=== PATIENT | female | born 1960 | race Caucasian/White ===

== ENCOUNTER → 2023-08-10 12:48 | Outpatient (REF) | payer OTHER, SELFPAY | LOC: HWRAD 12:48 | PROVIDERS: ATTENDING PHYSICIAN Family Medicine | DX: R31.9 Hematuria, unspecified (principal) | CPT/HCPCS: 76770 ==

== ENCOUNTER → 2023-08-26 10:47 | Outpatient (REF) | payer OTHER, SELFPAY | LOC: RAD 10:47 | PROVIDERS: ATTENDING PHYSICIAN Urology; FAMILY PHYSICIAN Family Medicine | DX: N13.30 Unspecified hydronephrosis (principal); R31.0 Gross hematuria | CPT/HCPCS: 74178; Q9967 ==

== ENCOUNTER 2023-08-26 12:03 | Emergency (ER) | payer OTHER, SELFPAY ==
[2023-08-26 12:07] VITALS: BP 160/96
--- NOTE | 2023-08-26 13:03 | ED.GENMED ---
History of Present Illness
General
Chief Complaint: Allergic Reaction
Time Seen by Provider: 08/26/23 12:38
Travel History
Have you had any contact with someone who has COVID-19?: No
Do you have any symptoms of coronavirus? Fever > 100 degrees, chills, cough, shortness of breath, sore throat, loss of taste or smell, muscle aches, or headache?: No
History of Present Illness
History of Present Illness:
63-year-old female without significant past medical history presenting to the emergency department for concern of allergic reaction. Patient reports about an hour prior and a half prior to arrival she had IV contrast for an outpatient CT scan.
After this study was done, she started to feel flushing to her face with swelling to her upper eyelids. She also had some itching and flushing to her palms. Denies any associated respiratory symptoms. Denies any GI symptoms. Denies any feeling
of throat closure. Reports that her symptoms have improved since initial symptom onset. Denies ever having IV contrast in the past. Denies any present chest pain, difficulty breathing, rash, visual changes, feeling of throat closure, nausea,
vomiting, or additional acute medical complaints.
Phy Exam
Physical Exam
Physical Exam:
GENERAL: Alert , in no apparent distress
EYE: pupils equal and reactive. Mild swelling to the upper eyelids without erythema
NECK: Supple, no significant adenopathy.
ENT: mmm. No oropharyngeal swelling
CARDIAC: Regular rate and rhythm .
LUNGS: Clear breath sounds bilaterally, no acute respiratory distress, no wheezes/rales/rhonchi
ABDOMEN: No distention
NEUROLOGICAL: Alert and oriented, no focal neuro deficits
SKIN: Warm and dry, skin intact. No systemic rash
MUSCULOSKELETAL: No edema, well perfused.
PSYCH: Normal and appropriate interaction.
Course
Vital Signs
Initial and Last Documented VS:
Initial Vital Signs
Temp Pulse Resp BP Pulse Ox
99.6 F 81 18 160/96 98
08/26/23 12:07 08/26/23 12:07 08/26/23 12:07 08/26/23 12:07 08/26/23 12:07
Last Documented Vital Signs
Temp Pulse Resp BP Pulse Ox
99.6 F 81 18 160/96 98
08/26/23 12:07 08/26/23 12:07 08/26/23 12:07 08/26/23 12:07 08/26/23 12:07
MDM/Problems Addressed
MDM/Problems Addressed:
63-year-old female presenting to the emergency department after presumed allergic reaction to IV contrast. Vital signs significant for mild hypertension, however patient slightly anxious.
On exam patient is very well-appearing, no acute distress or discomfort. Benign cardiac and pulmonary exam. No signs of systemic rash. No concern for anaphylaxis without any respiratory, GI, or systemic symptoms. Suspect mild allergic reaction
to the IV contrast. Patient is declining any medications at this time, such as Benadryl, Pepcid, steroids. She would like to continue supportive therapy at home. Feel that this is reasonable given improving symptoms, and injected contrast an hour
and a half prior to arrival. Feel stable for discharge. Explained that if she is to ever get imaging in the future, to make them aware of her allergy for potential reimaging prep. Return precautions discussed including any development of a rash,
increased swelling to the face, development of throat swelling or difficulty breathing, chest pain
*Critical Care Note
Total Time (30-74mins, 75-104mins- exclusive of procedures): Not Applicable
ED Attending Note
-
Portions of this chart may have been created with voice recognition software.� Occasional wrong word or��sound alike� substitutions may have occurred due to the inherent limitations of voice recognition software.
Discharge Plan
Departure
Referrals:
Guillermo Henderson MD [Family Provider] -
Interventions
Interventions:
*Risk Screen - Suicide Last Done: 08/26/23 12:10
*General Assessment Last Done: 08/26/23 12:10
*Neglect/Abuse Screening Last Done: 08/26/23 12:10
*ED COVID-19 Vaccine History Last Done: 08/26/23 12:16
ED- Cardiac Assessment Last Done: 08/26/23 12:16
ED- Pulmonary Assessment Last Done: 08/26/23 12:16
ED-Skin Assessment Last Done: 08/26/23 12:16
Discharge Date and Time
Print Language: BULGARIAN
== END 2023-08-26 13:14 | disposition home or self-care (01) ==
LOC: EMR 12:03
PROVIDERS: EMERGENCY PHYSICIAN Student in an Organized Health Care Education/Training Program; FAMILY PHYSICIAN Family Medicine
DX: R23.2 Flushing (principal); R22.0 Localized swelling, mass and lump, head; L29.9 Pruritus, unspecified; T50.8X5A Adverse effect of diagnostic agents, initial encounter; Z88.0 Allergy status to penicillin; Z88.3 Allergy status to other anti-infective agents; Z91.041 Radiographic dye allergy status
CPT/HCPCS: 99281

== ENCOUNTER 2023-08-26 21:54 | Inpatient (IN) | payer OTHER, SELFPAY ==
[2023-08-26 17:41] VITALS: BP 132/81
[2023-08-26 19:06] LABS: % Basophils 0.3 % (0-2); % Eosinophils 0.2 % (0-6); % Immature Granulocytes 0.7 % (0-0.5); % Monocytes 8.2 % (1.7-9.3); % Neutrophils 77.6 % (42.2-75.2); Absolute Immature Granulocytes 0.1 10^3/uL (0-0.05); Absolute Lymphocytes 1.7 10^3/uL (1.2-3.4); Absolute Neutrophils 9.9 10^3/uL (1.4-6.5); Hematocrit 31.9 % (37.0-47.0); Hemoglobin 10.8 g/dL (12.0-16.0); Mean Corp Hgb Conc. 33.9 g/dL (33.0-37.0); Mean Corpuscular Hgb 29.5 pg (27.0-31.0); Mean Corpuscular Volume 87.2 fL (81.0-99.0); Mean Platelet Volume 9.4 fL (7.4-10.4); Nucleated Red Blood Cells % 0 %; Platelet Count 224 10^3/uL (130-400); Red Blood Cell Count 3.66 10^6/uL (4.20-5.40); Red Cell Dist. Width 12.6 % (11.5-14.5); White Blood Cell Count 12.7 10^3/uL (4.8-10.8)
[2023-08-26 19:26] LABS: ALT (SGPT) 48 U/L (0-35); AST (SGOT) 52 U/L (14-36); Albumin 2.7 g/dl (3.5-5.0); Alkaline Phosphatase 91 U/L (38-126); Blood Urea Nitrogen 11 mg/dl (7-17); Calcium 8.8 mg/dl (8.4-10.2); Carbon Dioxide 25 mmol/L (22-30); Chloride 102 mmol/L (98-107); Glucose 97 mg/dl (70-99); Potassium 3.3 mmol/L (3.5-5.1); Sodium 132 mmol/L (135-145); Total Bilirubin 0.7 mg/dl (0.2-1.3); Total Protein 5.7 g/dl (6.3-8.2); eGFR > 60.00
[2023-08-26 19:34] LABS: Lipase 92 U/L (23-300)
--- NOTE | 2023-08-26 20:13 | ED.GENMED ---
History of Present Illness
General
Chief Complaint: Abnormal Lab Value
Source: patient
Exam Limitations: none
Time Seen by Provider: 08/26/23 19:20
Nursing documentation reviewed up to this point in time: agreed with
Travel History
Have you had any contact with someone who has COVID-19?: No
Do you have any symptoms of coronavirus? Fever > 100 degrees, chills, cough, shortness of breath, sore throat, loss of taste or smell, muscle aches, or headache?: No
History of Present Illness
History of Present Illness:
63 y/o F with h/o gerd
has had a few weeks/months of right lower bacak pain, atraumatic; no dysuria;
had US on 08/09 of kidneys and showed mild dilation of R renal pelvis; went to urology last week and dr. torrez ordered outpatient CT scan with IV contrast; pt's CT was done today outpatient; she had mild allergic reaction to contrast and was seen
here earlier then went home after symptoms resovled without meds
was called by dr. torrez with results of large periappendiceal abscess [id number]
she has had subjective fever/chills the past few days; nausea; lack fo appetite, weight loss;
her pain is mostl yin back 7/10 worse with movement
she feels chills
has had some vomiting the past few days occasionally
no constpation, diarrhea
Review of Systems
Review of Systems
Allergies reviewed?: Yes
All Other Systems: Not applicable
Phy Exam
Physical Exam
Physical Exam:
GENERAL: Alert , in no apparent distress, uncomfortable with movement of back
EYE: pupils equal and reactive
NECK: Supple
ENT: o/p clr, mmm.
CARDIAC: Regular rate and rhythm .
LUNGS: Clear breath sounds bilaterally, no acute respiratory distress, no wheezes/rales/rhonchi
ABDOMEN: Soft, moderate tenderness right flank, right lower quadrant, mild voluntary guarding, no rebound no cvat, normal bowel sounds
NEUROLOGICAL: Alert and oriented, no focal neuro deficits
SKIN: Warm and dry, skin intact.
back: right lower lumbar lateral tender
MUSCULOSKELETAL: No edema, well perfused. neg cecily's sign
PSYCH: Normal and appropriate interaction.
Course
Orders/Labs/Results
Orders:
Orders
08/26/23 Dinner
Clear Liquid
08/26/23 19:00
Complete Blood Count/With Diff Urgent
Comprehensive Metabolic Panel Urgent
Lipase Urgent
08/26/23 20:04
0.9% Sodium Chloride 1000 ml [Nss] 1,000 ml IV BOLUS
08/26/23 20:06
HYDROmorphone [Dilaudid] 0.5 mg IV NOW STA
08/26/23 20:15
MetroNIDAZOLE 500 MG/100 ML [Flagyl 500 mg] 100 ml IV NOW
08/26/23 20:35
Lactic Acid Urgent
Blood Culture Q30M
VIVIAN Source: Blood/Venous
Specimen Description:
Blood Culture Q30M
VIVIAN Source: Blood/Venous
Specimen Description:
08/26/23 20:55
0.9% Sodium Chloride [Nss (Preservative Free)] 8 ml IV NOW STA
Diphenhydramine [Benadryl] 25 mg IV NOW STA
Famotidine [Pepcid] 20 mg IV NOW STA
08/26/23 21:00
SURGICAL CONSULT Routine
Consulting Provider: Devin Trejo
Was physician already notified: Yes
Reason for consult: Periappendiceal abscess
08/26/23 21:01
Admit/Transfer Patient As Directed
Co-Sign Provider:
Level of Care: Inpatient admission
Assign to:: Medical/Surgical
Physician / Group: bruno cast
Diagnosis: Large periappendiceal abscess, allergic reaction IV contrast
Reason for Hospitalization: Large periappendiceal abscess, allergic reaction IV contrast
Expected length of stay greater than two midnights?: Yes
ELOS- Estimated Length of Stay in days: 3
I certify the patient meets the requirements for IP care: Yes
Code Status As Directed
Resuscitation Status: Full Code
Ciprofloxacin 400 mg/[id number] [Cipro 400 mg] 200 ml IV NOW
08/26/23 21:42
Potassium Chloride [KCl] 40 meq PO NOW STA
08/26/23 22:23
0.9% Sodium Chloride 1000 ml [Nss] 1,000 ml IV 100 mls/hr
Ciprofloxacin 400 mg/[id number] [Cipro 400 mg] 200 ml IV Q12H
Diphenhydramine [Benadryl] 25 mg IV Q4HPRN PRN
HYDROmorphone [Dilaudid] 0.25 mg IV Q4HPRN PRN
HYDROmorphone [Dilaudid] 0.5 mg IV Q4HPRN PRN
MetroNIDAZOLE 500 MG/100 ML [Flagyl 500 mg] 100 ml IV Q8H
Ondansetron Injectable [Zofran] 4 mg IV Q6HPRN PRN
08/26/23 22:23
Activity As Directed
Activity Level: As Tolerated
Pneumatic Compression Sleeves As Directed
Type: Knee high
Vital Signs As Directed
Frequency: Per unit guidelines
Ot Eval And Treat Routine
Pt Eval And Treat Routine
Activity Level: As Tolerated
DX Deep Vein Thrombosis Video Routine
08/27/23 06:00
Complete Blood Count/With Diff IN AM
Comprehensive Metabolic Panel IN AM
08/27/23 08:00
Famotidine [Pepcid] 20 mg IV Q12
Levothyroxine [Synthroid] 50 mcg PO DAILY
08/27/23 12:00
Tamsulosin [Flomax] 0.4 mg PO NOON
08/27/23 18:00
Pantoprazole [Protonix] 40 mg PO QPM
08/28/23 06:00
Complete Blood Count/With Diff IN AM
Comprehensive Metabolic Panel IN AM
08/29/23 06:00
Complete Blood Count/With Diff IN AM
Comprehensive Metabolic Panel IN AM
Abnormal Lab Results
08/26/23
19:00
WBC 12.7 H 10^3/uL
(4.8-10.8)
RBC 3.66 L 10^6/uL
(4.20-5.40)
Hgb 10.8 L g/dL
(12.0-16.0)
Hct 31.9 L %
(37.0-47.0)
Abs Immat Gran (auto) 0.1 H 10^3/uL
(0-0.05)
Absolute Neuts (auto) 9.9 H 10^3/uL
(1.4-6.5)
Absolute Monos (auto) 1.0 H 10^3/uL
(0.1-0.6)
Immature Gran % 0.7 H %
(0-0.5)
Neutrophils % 77.6 H %
(42.2-75.2)
Lymphocytes % 13.0 L %
(20.5-51.1)
Sodium 132 L mmol/L
(135-145)
Potassium 3.3 L mmol/L
(3.5-5.1)
Creatinine 0.5 L mg/dL
(0.6-1.0)
AST 52 H U/L
(14-36)
ALT 48 H U/L
(0-35)
Total Protein 5.7 L g/dl
(6.3-8.2)
Albumin 2.7 L g/dl
(3.5-5.0)
08/26/23 19:00
08/26/23 19:00
Vital Signs
Initial and Last Documented VS:
Initial Vital Signs
Temp Pulse Resp BP Pulse Ox
99.6 F 95 18 132/81 97
08/26/23 17:41 08/26/23 17:41 08/26/23 17:41 08/26/23 17:41 08/26/23 17:41
Last Documented Vital Signs
Temp Pulse Resp BP Pulse Ox
99.6 F 74 15 132/88 97
08/26/23 17:41 08/26/23 20:41 08/26/23 20:41 08/26/23 20:41 08/26/23 20:41
MDM/Problems Addressed
Differential Diagnosis Includes:
intraabdominal abscess, sepsis, bacteremia, mailgnancy
MDM/Problems Addressed:
63 y/o F with no real sig pmh
here with weeks of R lower back pain and some abd discomfort, nausea, weight loss, lack of appetite
w/u outpatient with renal US to start, no real concerns, maybe dialuation of renal collecting system
sent to urology who saw her and ordered CT with IV ocnrast
which unfortunately shows large R intraabdominal abscess periappendiceal
probably acute appe but malignancy less likely
pt is tender RLQ and back
low grad etemp
wbc 12
cultures pending
iv abx
d/w jose trejo who recommended IR consult iv abx
admit medicine
*Critical Care Note
Total Time (30-74mins, 75-104mins- exclusive of procedures): Not Applicable
ED Attending Note
-
Portions of this chart may have been created with voice recognition software.� Occasional wrong word or��sound alike� substitutions may have occurred due to the inherent limitations of voice recognition software.
Discharge Plan
Departure
Patient Disposition: Admit
Date of Disposition: 08/26/23
Time of Disposition: 20:12
Admit to: Med/Surg
Presentation/result/management discussed w/ accepting MD/DO: Hospitalist
Condition: Fair
Covid-19: Not Applicable
Discharge Problem:
Intra-abdominal abscess
Interventions
Interventions:
*Risk Screen - Suicide Last Done: 08/26/23 17:41
*General Assessment Last Done: 08/26/23 17:41
*Neglect/Abuse Screening Last Done: 08/26/23 17:45
ED- Fall Risk Assessment Last Done: 08/26/23 22:31
*Nursing Disposition Last Done: 08/26/23 22:31
Discharge Date and Time
Discharge Date/Time: 08/26/23 22:33
[2023-08-26] MEDS: DILAUDID 0.5 MG IV (20:34)
[2023-08-26] MEDS: FLAGYL 500 MG 100 IV (20:34)
[2023-08-26] MEDS: NSS 1000 IV ×2 (20:34→22:55)
--- NOTE | 2023-08-26 20:39 | HPS.HSE ---
Family Physician
-
Family Physician: Guillermo Henderson
Chief Complaint
-
Persistent back pain, vomiting, chills
History of Present Illness
63-year-old female complaining of right lower back pain over the past few weeks to months. She had outpatient ultrasound of her kidneys on 08/09 showing mild dilation of her right renal pelvis she had follow-up with Dr. Carter last week who ordered
an outpatient CT with contrast that was done today. She did have an allergic reaction to the contrast causing swelling of her upper eyelids, erythema lower orbits, erythema upper chest but is still present. She denies any tongue swelling, lip
swelling wheezing or shortness of breath . she was notified by Dr. Carter of a large periappendiceal abscess and was sent to ER for evaluation. She reports feeling back pain worse with movement, chills, vomiting over the past few days. She denies
headache, chest pain, palpitations, shortness breath, cough, diarrhea, constipation, urinary symptoms. She is past medical history of hypothyroidism, GERD
Medical History
Past Medical History
Past Medical History: Reports Other
Additional Past Medical History:
hypothyroidism, GERD
Past Surgical History: Reports Other
Additional Past Surgical History:
Fracture right shoulder repair
Hysterectomy 2002
Social History
Tobacco: Former Smoker (35-year 1 pack a day quit March 2023)
Alcohol: None
Drug: None
Living: With Family
Family History
Family History: Other (Mother age 66 renal cancer, father age 90 [address])
Allergies / Home Medications
Allergies reflects when Allergies were last updated in [facility].
Home Medications with original date entered in [facility]
Allergy/Medication List:
Allergies
Allergy/AdvReac Type Severity Reaction Status Date / Time
Iodinated Contrast Media Allergy Intermediate Hives Verified 08/26/23 17:41
Cephalosporins Allergy Unknown Verified 08/26/23 17:41
penicillin V Allergy Unknown Verified 08/26/23 17:41
Penicillins Allergy Unknown Verified 08/26/23 17:41
Home Medications
ibuprofen 200 mg tablet 400 mg PO TIDPRN PRN mild pain 08/26/23
levothyroxine 50 mcg tablet (Synthroid) 50 mcg PO DAILY 08/26/23
pantoprazole 40 mg tablet,delayed release 40 mg PO QPM 08/26/23
tamsulosin 0.4 mg capsule 0.4 mg PO NOON 08/26/23
Review of Systems
-
History Source: Patient and Family (Daughter)
A 12 point ROS was completed and negative except as noted: Yes
Constitutional: Denies Fever, Fatigue or Chills
EENT: Reports Other (Swelling of upper eyelids, erythema lower orbits, erythema upper chest post IV iodine)
Respiratory: Denies Cough or Trouble Breathing
Cardiac: Denies Chest Pain, Diaphoresis, Palpitations or Syncope
Abdomen/GI: Reports Abdominal Pain (To right of umbilicus with rebound tenderness), Nausea and Vomiting; Denies Diarrhea, Constipated or Bloody Stools
: Denies Dysuria, Frequency, Flank Pain, Incontinence, Difficulty Voiding or Urgency
Musculoskeletal: Denies Joint Pain or Edema
Skin: Denies Itching
Neurological: Denies Dizzy, Headache or Weakness
Endocrine: Reports No Symptoms
Hematologic/Lymphatic: Reports No Symptoms
Psych: Reports Calm
Physical Exam
Vital Signs
Vital Signs
Temp Pulse Resp BP Pulse Ox
99.6 F 95 18 132/81 97
08/26/23 17:41 08/26/23 17:41 08/26/23 17:41 08/26/23 17:41 08/26/23 17:41
Physical Exam
General: Comfortable and Conversant; No Fever or Chills
HEENT: NormoCephalic, Anicteric, Moist mucous membranes, PERRLA, [place] Conjunctivae, No Ptosis and Other (Swelling of upper eyelids, erythema lower orbits, erythema upper chest post IV iodine)
Respiratory: No Wheezes, Rales, Rhonchi or Crackles
Cardiac: S1/S2 and Regular Rhythm; No Murmur, Rub, Gallop or Peripheral Edema
Breast: Deferred by me
GI: Soft, Non Distended, Normal Bowel Sounds, Tender (To right of umbilicus with rebound tenderness) and No Hepatosplenomegaly
Genito-urinary: No costovertebral tender
Musculoskeletal: Clubbing (All fingernails), No Cyanosis and No Edema
Skin: Warm and Dry; No Jaundice
Neuro: AO x 3, No Motor Deficits, Nonfocal/grossly intact, Cranial Nerves Intact and No Sensory Deficits; No Slurred Speech, Facial Droop or Tremors
Psych: Calm
Laboratory Results
-
08/26/23 19:00
08/26/23 19:00
Laboratory Results
Total Bilirubin 0.7 mg/dl (0.2-1.3) 08/26/23 19:00
AST 52 U/L (14-36) H 08/26/23 19:00
ALT 48 U/L (0-35) H 08/26/23 19:00
Alkaline Phosphatase 91 U/L (38-126) 08/26/23 19:00
Lipase 92 U/L (23-300) 08/26/23 19:00
Impression/Plan
-
Impression/plan:
Admit to MedSurg
#Large periappendiceal abscess
WBC 12.7 with left shift, HR 95, 99.6, 130/81
-Consult IR
-Consult surgery Dr. Trujillo aware
-Blood cultures x 2
-IV Cipro, IV Flagyl
-Pain control
-Follow CBC, CMP
CT urography abdomen pelvis pre and post IV contrast:
1. Large multiloculated periappendiceal abscess 9.1 x 7.4 x 8.1 cm
2. Gallstone
3. Hepatic cyst
4. Too small to characterize hypodense right renal lesions likely benign cyst
5. Simple right renal cyst
6. Coarse pancreatic calcifications suggesting chronic pancreatitis
#Allergic reaction IV iodine contrast eyelid swelling
-IV Benadryl now, IV Pepcid now
-Pepcid every 12
-Benadryl 25 mg as needed
#Hypokalemia
K3.3 will give KCl 40 mEq p.o.
Follow BMP
#Mild transaminitis likely reactive
Follow CMP
#GERD
-Continue Protonix 40 mg every afternoon
#Hypothyroidism
-Continue levothyroxine 50 mcg p.o. daily
DVT prophylaxis
SCDs
Full code
[2023-08-26 20:41] VITALS: BP 132/88
--- NOTE | 2023-08-26 20:55 | W.PN.UPDATE ---
Update Note
Progress Note Update
This serves as an addendum to the H&P dictated by Christina Dowell on 08/26/2023.
I saw and examined the patient.
The DIRECTOR SYSTEMS or PA's note was reviewed and I agree with the note.
Comment:
Patient is 63 years old female with history of hypothyroidism and GERD who came into the hospital with abdominal pain. Patient has been experiencing abdominal pain for over a month intermittent and moderate intensity and she had outpatient
ultrasound of her kidney showing mild dilation of the right renal pelvis and follow-up with urology last week who ordered an outpatient CT scan with contrast that was done today and it was abnormal. Patient describes she has been having moderate
intensity pain mostly in the right lower quadrant and right upper quadrant radiated to the back associated with nausea and chills, no fevers, no chest pain or shortness of breath. Denies any urinary symptoms including dysuria urgency or frequency.
She did have some hematuria. In the ER white blood cell count 12.7, hemoglobin 10.8, CT scan of the abdomen shows large multiloculated periappendiceal abscess.
Physical exam:
General: Acutely ill
HEENT: Normocephalic, Atraumatic and Dry Mucous Membranes
Respiratory: Clear to Auscultation; Negative Wheezes, Rales or Rhonchi
Cardiac: Regular Rhythm and S1/S2
GI: Soft, Tender in epigastric right upper quadrant and right lower quadrant and Nondistended
Musculoskeletal: No Clubbing, No Cyanosis and No Edema
Neuro: Awake, Alert and Oriented
Psych: Calm
A/P:
Appendicitis with periappendiceal abscess--> keep n.p.o., IV fluids, IV antibiotics, surgery consult, IR consult, for drainage pain control. Benadryl as needed for allergy to possible dye contrast and trying to avoid steroids unless absolutely
necessary. Will give further recommendations based on her clinical course.
[2023-08-26 21:00] VITALS: BMI 31.9
[2023-08-26] MEDS: CIPRO 400 MG 200 IV (21:33)
[2023-08-26] MEDS: BENADRYL 25 MG IV (21:33)
[2023-08-26] MEDS: PEPCID 20 MG IV (21:33)
[2023-08-26 22:34] VITALS: BP 150/86; BMI 31.2
--- NOTE | 2023-08-26 22:45 | PTCARENOTE ---
Pt. arrived to [facility] from ER via stretcher and able to walk to room bed with steady gait. Nauseous and vomiting small amount of green bile upon arrival, states feeling better following emesis. Pt. A&Ox3, even and unlabored breathing on RA, in NAD,
and VSS. Pt. oriented to room and unit policies, call light within reach, side rails in place, bed locked and in lowest position.
[2023-08-26] MEDS: ZOFRAN 4 MG IV (22:55)
[2023-08-26] MEDS: KCL 20 MEQ PO (23:00)
[2023-08-26 23:16] VITALS: BP 132/86
[2023-08-27] VITALS (11 sets, daily range): BP systolic 60–126; BP diastolic 68–81; PULSE 71
[2023-08-27] MEDS: FLAGYL 500 MG 100 IV ×3 (04:14→20:01)
[2023-08-27] MEDS: SYNTHROID 50 MCG PO (06:35)
[2023-08-27 07:42] LABS: % Basophils 0.3 % (0-2); % Eosinophils 0.1 % (0-6); % Immature Granulocytes 0.7 % (0-0.5); % Lymphocytes 8.3 % (20.5-51.1); % Monocytes 7.1 % (1.7-9.3); % Neutrophils 83.5 % (42.2-75.2); Absolute Immature Granulocytes 0.1 10^3/uL (0-0.05); Absolute Lymphocytes 1.1 10^3/uL (1.2-3.4); Absolute Neutrophils 11.2 10^3/uL (1.4-6.5); Hematocrit 30.5 % (37.0-47.0); Hemoglobin 10.5 g/dL (12.0-16.0); Mean Corp Hgb Conc. 34.4 g/dL (33.0-37.0); Mean Corpuscular Hgb 29.9 pg (27.0-31.0); Mean Corpuscular Volume 86.9 fL (81.0-99.0); Mean Platelet Volume 9.4 fL (7.4-10.4); Nucleated Red Blood Cells % 0 %; Platelet Count 214 10^3/uL (130-400); Red Blood Cell Count 3.51 10^6/uL (4.20-5.40); Red Cell Dist. Width 12.6 % (11.5-14.5); White Blood Cell Count 13.4 10^3/uL (4.8-10.8)
--- NOTE | 2023-08-27 08:10 | CON.GS ---
Addendum entered and electronically signed by Dario Huddleston MD 08/27/23 10:21:
Patient seen and examined. Agree with assessment plan as documented below.
Patient is a 63 yo F with a PMH of GERD, hypothyroidism, s/p open partial hysterectomy, and s/p RIGHT shoulder surgery. Ms. Hughes presents with 4 to 6 weeks of persistent RLQ and back pain. Associated fevers and chills. Associated mild nausea,
but no episodes of emesis. No fluctuations in bowel habits. She initially underwent an outpatient ultrasound which demonstrated mild dilation of the renal pelvis prompting referral to Urology. An outpatient CT scan was obtained, which
demonstrated a large 9 cm periappendiceal and pericolonic fluid collection concerning for an abscess. No prior colonoscopy. Family history notable for RCC in her mother. Her symptoms this AM are stable with persistent RLQ/back pain. She is
febrile.
Gen: NAD
Abd: soft, tender to palpation in RLQ. obese, ND, non-peritoneal
Labs and CT scan imaging were reviewed.
Patient is a 63 yo F p/w 4-6 weeks of right low back/RLQ discomfort with intermittent chills and fevers.
Outpatient workup demonstrated an approx 9cm periappendiceal abscess and she was advised to present. Febrile with leukocytosis, vitals otherwise stable. Favor subacute appendicitis with perforation vs less likely malignancy.
--Clear liquids (high risk for ileus)
--IR consulted for drainage of abscess
--Trend labs/fevers
--Continue IV abx (cipro/flagyl)
--Analgesics/antiemetics prn
--Will send fluid for cx and cytology as well as serum tumor markers
--Will need continued outpatient follow up for colonoscopy and discussion of interval appendectomy
--VTE ppx with lovenox and SCD's
Original Note:
Consultation
-
Date/Time Consultation Requested: 08/26/23 2100
Requesting Provider: Magalys
Reason for Consultation: Periappendiceal abscess
Medical History
-
Chief Complaint: right low back and lower abdominal pain
History of Present Illness:
Ms Hughes is a 63 yo female with a h/o open partial hysterectomy who presents with 4-6 weeks of right low back and lower abdominal pain with intermittent chills, fevers and nausea. She noted hematuria and presented for evaluation to her urologist
as an outpatient with renal US showing mild dilation of the renal pelvis on 08/09 and follow up outpatient CT yesterday demonstrating a large periappendiceal abscess. She was advised by her urologist to present to the ED for further treatment and
management. She is febrile this am to 101.6. She has focal tenderness to the RLQ. She denies bowel changes.
Past Medical History
Past Medical History: GERD and Hypothyroidism
Past Surgical History: Gynecological (open partial hysterectomy 2002) and Orthopedic (right shoulder)
Social History
Tobacco: Former Smoker (quit 03/2023)
Alcohol: None
Drug: None
Living: With Family
Family History
Family History: Reviewed & Not Pertinent
Allergies / Home Medications
Allergy/AdvReac Type Severity Reaction Status Date / Time
Cephalosporins Allergy Unknown Verified 08/26/23 20:57
Iodinated Contrast Media Allergy Hives Verified 08/26/23 20:57
penicillin V Allergy Unknown Verified 08/26/23 20:57
Penicillins Allergy Unknown Verified 08/26/23 20:57
�Medication �Instructions �Recorded �Confirmed �Type
ibuprofen 200 mg tablet 400 mg PO TIDPRN PRN mild pain 08/26/23 08/26/23 History
levothyroxine 50 mcg tablet 50 mcg PO DAILY Thyroid 08/26/23 08/26/23 History
(Synthroid)
pantoprazole 40 mg tablet,delayed 40 mg PO QPM Gastrointestinal Issue 08/26/23 08/26/23 History
release
tamsulosin 0.4 mg capsule 0.4 mg PO NOON 08/26/23 08/26/23 History
Review of Systems
-
History Source: Patient
All other systems: Negative unless noted
A 10 point review of systems was completed, and was negative except as per HPI.
Physical Exam
Vital Signs
Temp Pulse Resp BP Pulse Ox
101.6 F H 74 17 120/68 94
08/27/23 06:55 08/27/23 06:55 08/27/23 06:55 08/27/23 06:55 08/27/23 06:55
08/26/23 08/27/23 08/28/23
06:59 06:59 06:59
Actual Weight 85.02 kg
Body Mass Index (BMI) 31.2
Lab Results
08/27/23 07:27
WBC 13.4 10^3/uL (4.8-10.8) H 08/27/23 07:27
Hgb 10.5 g/dL (12.0-16.0) L 08/27/23 07:27
Hct 30.5 % (37.0-47.0) L 08/27/23 07:27
Plt Count 214 10^3/uL (130-400) 08/27/23 07:27
Abs Immat Gran (auto) 0.1 10^3/uL (0-0.05) H 08/27/23 07:27
Neutrophils % 83.5 % (42.2-75.2) H 08/27/23 07:27
Physical Exam
General: Well Developed and Well Nourished
HEENT: Moist Mucous Membranes
Respiratory: Non Labored Respirations
GI: Soft, Non Distended and Tender (RLQ )
Skin: Warm and Dry
Neuro: Awake, Alert and AO x 3
Psych: Calm
Data Reviewed
-
CT Scan: Image Personally Visualized and interpreted, Report Reviewed by me, Discussed with Physician and Discussed with Patient
Labs: Labs Reviewed by me, Discussed with Physician and Discussed with Patient
Old Records: Reviewed
Assessment / Plan
-
63 yo female with a h/o partial hysterectomy presenting with 4-6 weeks of right low back/RLQ discomfort with intermittent chills and fevers. Outpatient workup demonstrated an approx 9cm periappendiceal abscess and she was advised to present. Febrile
with leukocytosis, vitals otherwise stable. Favor subacute appendicitis with perforation vs less likely malignancy.
--Clear liquids (high risk for ileus)
--IR consulted for drainage of abscess
--Trend labs/fevers
--Continue IV abx (cipro/flagyl)
--Analgesics/antiemetics prn
--Will send fluid for cx and cytology as well as serum tumor markers
--Will need continued outpatient follow up for colonoscopy and discussion of interval appendectomy
--VTE ppx with lovenox and SCD's
[2023-08-27] MEDS: PEPCID 20 MG IV ×2 (08:22→20:00)
[2023-08-27] MEDS: NSS (PRESERVATIVE FREE) 8 ML IV ×2 (08:22→20:00)
[2023-08-27] MEDS: ZOFRAN 4 MG IV (08:23)
[2023-08-27] MEDS: DILAUDID 0.5 MG IV (08:23)
[2023-08-27] MEDS: FLUSH (NSS) 1 FLUSH IV (08:24)
[2023-08-27] MEDS: NSS 1000 IV (08:28)
[2023-08-27 08:31] LABS: INR 1.35; PT 16.5 Sec (11.4-14.6)
[2023-08-27 08:35] LABS: ALT (SGPT) 40 U/L (0-35); AST (SGOT) 40 U/L (14-36); Albumin 2.6 g/dl (3.5-5.0); Alkaline Phosphatase 93 U/L (38-126); Blood Urea Nitrogen 8 mg/dl (7-17); Calcium 8.4 mg/dl (8.4-10.2); Carbon Dioxide 22 mmol/L (22-30); Chloride 102 mmol/L (98-107); Estimated Creatinine Clearance 102 ml/min; Glucose 100 mg/dl (70-99); Potassium 3.7 mmol/L (3.5-5.1); Sodium 132 mmol/L (135-145); Total Bilirubin 1.1 mg/dl (0.2-1.3); Total Protein 5.4 g/dl (6.3-8.2); eGFR > 60.00
--- NOTE | 2023-08-27 09:18 | W.PN.HOSP.TC ---
Today's Communication/Plan
-
see plan
Assessment / Plan
Assessment / Plan
Ms. Marilyn Hughes is a 63 year old woman with history of hypothyroidism and GERD with outpatient work-up of one month abdominal pain showing large multiloculated periappendiceal abscess - sent to the ER.
CT urography abdomen pelvis pre and post IV contrast:
1. Large multiloculated periappendiceal abscess 9.1 x 7.4 x 8.1 cm
2. Gallstone
3. Hepatic cyst
4. Too small to characterize hypodense right renal lesions likely benign cyst
5. Simple right renal cyst
6. Coarse pancreatic calcifications suggesting chronic pancreatitis
#Large periappendiceal abscess
-appreciate surgery consult
-plan for IR-guided drainage
-Blood cultures x 2
-F/U cultures from IR
-IV Cipro, IV Flagyl
-Pain control
-CLD
#Allergic reaction IV iodine contrast eyelid swelling
-IV Benadryl now, IV Pepcid now
-Pepcid every 12
-Benadryl 25 mg as needed
-*resolved AM 08/26
#Hypokalemia
-repleted
#Mild transaminitis likely reactive
Follow CMP
#GERD
-Continue Protonix 40 mg every afternoon
#Hypothyroidism
-Continue levothyroxine 50 mcg p.o. daily
DVT prophylaxis
SCDs
Full code
Anticipated Discharge: > 48 hours
Subjective/Interval History
-
Date of Service: August 27, 2023
pain controlled
eyelid swelling resolved
awaiting IR drainage
Objective Data
-
Labs:
Laboratory Results
08/27/23 08/27/23
07:27 08:05
WBC 13.4 H
Hgb 10.5 L
Hct 30.5 L
Plt Count 214
PT 16.5 H
INR 1.35
Sodium 132 L
Potassium 3.7
Chloride 102
Carbon Dioxide 22
BUN 8
Creatinine 0.5 L
Glucose 100 H
Calcium 8.4
Total Bilirubin 1.1
AST 40 H
ALT 40 H
Alkaline Phosphatase 93
Vital Signs:
Vital Signs
Temp Pulse Resp BP Pulse Ox
101.6 F H 74 17 120/68 94
08/27/23 06:55 08/27/23 06:55 08/27/23 06:55 08/27/23 06:55 08/27/23 06:55
Review of Systems
-
History Source: Patient
All other systems: Reviewed and negative
Physical Exam
-
General: No Apparent Distress
HEENT: PERRLA
Respiratory: Clear to Auscultation; Negative Wheezes
Cardiac: Regular Rhythm and S1/S2
GI: Other (tender RLQ)
Musculoskeletal: No Edema
Skin: Warm and Dry; Negative Rash
Neuro: AO x 3
Psych: Calm
Data Reviewed
-
Diagnostic Radiology: Report Reviewed by me
Labs: Labs Reviewed by me
[2023-08-27] MEDS: CIPRO 400 MG 200 IV ×2 (09:49→21:39)
[2023-08-27 10:17] LABS: CEA 1.23 ng/ml
--- NOTE | 2023-08-27 10:58 | CM ---
Patient seen at bedside. Patient states that she lives alone but also talked about her significant other who is caring for her dog. Patient daughter also supportive. Patient states it is a one story home with no DME at home. Patient PCP is "Franklin"Santiago and she uses the [facility] in [place]. Patient stated that she is independent and walking/driving with no concerns prior to admission. Patient anticipates that she will not need supports at discharge. CM will continue to follow for discharge
planning needs.
Plan; home with no needs vs home with Vn
--- NOTE | 2023-08-27 11:36 | PTOTSP ---
Pt presents to OT at mod I level for basic self care, transfers and functional mobility in room and bathroom while pushing IV pole safely. No further skilled OT indicated at this time.
--- NOTE | 2023-08-27 11:36 | PTOTSP ---
Patient demonstrates good insight into safety with transfers and ambulation without overt gait deviation. Does not demonstrate further need for skilled therapy and will be discharged at this time. If needs change, please re-consult.
[2023-08-27] MEDS: FLOMAX 0.400000000000000022 MG PO (12:52)
[2023-08-27] MEDS: LOVENOX 40 MG SC (17:39)
[2023-08-27] MEDS: PROTONIX 40 MG PO (17:39)
[2023-08-27] MEDS: DILAUDID 0.25 MG IV (19:54)
[2023-08-28] MEDS: NSS IV (03:25)
[2023-08-28] MEDS: NSS 1000 IV (03:25)
[2023-08-28] MEDS: FLAGYL 500 MG 100 IV ×3 (03:26→20:00)
[2023-08-28] MEDS: SYNTHROID 50 MCG PO (06:11)
[2023-08-28 07:00] VITALS: BP 121/82
[2023-08-28 08:10] LABS: % Basophils 0.4 % (0-2); % Eosinophils 0.5 % (0-6); % Immature Granulocytes 0.9 % (0-0.5); % Lymphocytes 14.1 % (20.5-51.1); % Monocytes 7.3 % (1.7-9.3); % Neutrophils 76.8 % (42.2-75.2); Absolute Immature Granulocytes 0.1 10^3/uL (0-0.05); Absolute Lymphocytes 1.1 10^3/uL (1.2-3.4); Absolute Monocytes 0.6 10^3/uL (0.1-0.6); Absolute Neutrophils 5.8 10^3/uL (1.4-6.5); Hematocrit 29.8 % (37.0-47.0); Hemoglobin 10.3 g/dL (12.0-16.0); Mean Corp Hgb Conc. 34.6 g/dL (33.0-37.0); Mean Corpuscular Hgb 29.8 pg (27.0-31.0); Mean Corpuscular Volume 86.1 fL (81.0-99.0); Mean Platelet Volume 9.4 fL (7.4-10.4); Nucleated Red Blood Cells % 0 %; Platelet Count 225 10^3/uL (130-400); Red Blood Cell Count 3.46 10^6/uL (4.20-5.40); Red Cell Dist. Width 12.8 % (11.5-14.5); White Blood Cell Count 7.5 10^3/uL (4.8-10.8)
[2023-08-28] MEDS: TYLENOL 650 MG PO ×2 (08:18→20:00)
--- NOTE | 2023-08-28 08:18 | W.PN.GS2 ---
Today's Communication / Plan
-
Advance to a regular diet.
Continue drain to a bulb suction, flush with 10 cc sterile saline daily to maintain patency.
Continue antibiotics, will plan for a 10-day course on discharge (possibly as early as tomorrow).
Will need drain teaching, prescription for flushes.
She will need an outpatient colonoscopy, and likely drain injection study/repeat CT scan prior to interval appendectomy.
Surgical continue to follow.
Assessment / Plan
-
This is a 63-year-old female with a history of an open partial hysterectomy, no prior colonoscopy but routinely does Cologuard screening who presents with a 4 to 6-week history of persistent right lower quadrant pain found to have a large abscess
likely perforated appendicitis now PPD #1 from a IR drain. Clinically much improved, passing flatus. Leukocytosis resolved.
Advance to a regular diet.
Continue drain to a bulb suction, flush with 10 cc sterile saline daily to maintain patency.
Continue antibiotics, will plan for a 10-day course on discharge (possibly as early as tomorrow).
Will need drain teaching, prescription for flushes.
She will need an outpatient colonoscopy, and likely drain injection study/repeat CT scan prior to interval appendectomy.
Surgical continue to follow.
Time Spent
Total Time Spent with Patient (in minutes): 10
Subjective Data
-
Date of Service: August 28, 2023
Interval Events:
No acute events overnight. IR drain well-placed. Slept well. Pain much improved/controlled. Denies Nausea/Vomiting. Tolerating diet.
Objective Data
-
Intake and Output
08/27/23 08/28/23 08/29/23
06:59 06:59 06:59
Intake Total 2705 / 2705
Output Total 135 / 135
Balance 2570 / 2570
Intake:
Oral fluids 1200 / 1200
IV fluids (Total) 1200 / 1200
IV piggybacks 300 / 300
Amount instilled into Drain (
Total)
Right Lower Abdomen Placed in
IR
Output:
Drain Output (Total) 135 / 135
Mino 135 / 135
Other:
Number of approximated SMALL 2
amounts of urine
Number of approximated MODERATE 1 2
amounts of urine
Vital Signs
Temp Pulse Resp BP Pulse Ox
98.4 F 60 18 121/82 97
08/28/23 07:00 08/28/23 07:00 08/28/23 07:00 08/28/23 07:00 08/28/23 07:00
Calcium 8.4 mg/dl (8.4-10.2) 08/27/23 07:27
Total Bilirubin 1.1 mg/dl (0.2-1.3) 08/27/23 07:27
AST 40 U/L (14-36) H 08/27/23 07:27
ALT 40 U/L (0-35) H 08/27/23 07:27
Alkaline Phosphatase 93 U/L (38-126) 08/27/23 07:27
Total Protein 5.4 g/dl (6.3-8.2) L 08/27/23 07:27
Albumin 2.6 g/dl (3.5-5.0) L 08/27/23 07:27
Physical Exam
-
GENERAL/NEURO: Awake, Alert, no distress
CHEST: Unlabored breathing on RA
ABDOMEN: Soft, Non-Tender, Non-Distended, obese. ULYSSES with dark bloody output.
[2023-08-28] MEDS: PEPCID 20 MG IV (08:20)
[2023-08-28] MEDS: NSS (PRESERVATIVE FREE) 8 ML IV (08:20)
[2023-08-28 08:28] LABS: ALT (SGPT) 34 U/L (0-35); AST (SGOT) 34 U/L (14-36); Albumin 2.5 g/dl (3.5-5.0); Alkaline Phosphatase 82 U/L (38-126); Blood Urea Nitrogen 8 mg/dl (7-17); Carbon Dioxide 25 mmol/L (22-30); Chloride 104 mmol/L (98-107); Estimated Creatinine Clearance 102 ml/min; Glucose 93 mg/dl (70-99); Potassium 3.5 mmol/L (3.5-5.1); Sodium 136 mmol/L (135-145); Total Bilirubin 0.9 mg/dl (0.2-1.3); Total Protein 5.4 g/dl (6.3-8.2); eGFR > 60.00
--- NOTE | 2023-08-28 09:25 | W.PN.HOSP.TC ---
Today's Communication/Plan
-
awaiting final abscess culture
change antibiotics to IV Ceftriaxone/Flagyl
Assessment / Plan
Assessment / Plan
Ms. Marilyn Hughes is a 63 year old woman with history of hypothyroidism and GERD with outpatient work-up of one month abdominal pain showing large multiloculated periappendiceal abscess - sent to the ER.
CT urography abdomen pelvis pre and post IV contrast:
1. Large multiloculated periappendiceal abscess 9.1 x 7.4 x 8.1 cm
2. Gallstone
3. Hepatic cyst
4. Too small to characterize hypodense right renal lesions likely benign cyst
5. Simple right renal cyst
6. Coarse pancreatic calcifications suggesting chronic pancreatitis
#Large periappendiceal abscess
-appreciate surgery consult
-s/p IR-guided drainage
-F/U blood cultures
-F/U cultures from IR
-change abx to ceftriaxone/flagyl. Patient reports penicillin allergy at 8 months old, hives, did not need hospitalization. she was on cipro as outpatient given concern for pyelo
-pain control
-diet advanced
#Allergic reaction IV iodine contrast eyelid swelling
-s/p Benadryl
-*resolved AM 08/26
#Hypokalemia
-repleted
#Mild transaminitis likely reactive
Follow CMP
#GERD
-Continue Protonix 40 mg every afternoon
#Hypothyroidism
-Continue levothyroxine 50 mcg p.o. daily
DVT prophylaxis
SCDs
Full code
Anticipated Discharge: 24 - 48 hours
Subjective/Interval History
-
Date of Service: August 28, 2023
feeling better today
pain much improved
eating/drinking
Objective Data
-
Labs:
Laboratory Results
08/28/23
07:19
WBC 7.5
Hgb 10.3 L
Hct 29.8 L
Plt Count 225
Sodium 136
Potassium 3.5
Chloride 104
Carbon Dioxide 25
BUN 8
Creatinine 0.6
Glucose 93
Calcium 8.0 L
Total Bilirubin 0.9
AST 34
ALT 34
Alkaline Phosphatase 82
Vital Signs:
Vital Signs
Temp Pulse Resp BP Pulse Ox
98.4 F 60 18 121/82 97
08/28/23 07:00 08/28/23 07:00 08/28/23 07:00 08/28/23 07:00 08/28/23 07:00
I&O
08/27/23 08/28/23 08/29/23
06:59 06:59 06:59
Intake Total 2705 / 2705
Output Total 135 / 135
Balance 2570 / 2570
Review of Systems
-
History Source: Patient
All other systems: Reviewed and negative
Physical Exam
-
General: No Apparent Distress
HEENT: PERRLA
Respiratory: Clear to Auscultation; Negative Wheezes
Cardiac: Regular Rhythm and S1/S2
GI: Other (ULYSSES drain in place)
Musculoskeletal: No Edema
Skin: Warm and Dry; Negative Rash
Neuro: AO x 3
Psych: Calm
Data Reviewed
-
Diagnostic Radiology: Report Reviewed by me
Labs: Labs Reviewed by me
[2023-08-28] MEDS: ROCEPHIN 1000 MG IV (11:08)
[2023-08-28] MEDS: STERILE WATER FOR INJECTION 10 ML IV (11:08)
[2023-08-28] MEDS: FLOMAX 0.400000000000000022 MG PO (12:35)
[2023-08-28 15:45] VITALS: BP 149/90
[2023-08-28] MEDS: PROTONIX 40 MG PO (17:05)
[2023-08-28] MEDS: LOVENOX 40 MG SC (17:08)
[2023-08-28 22:58] VITALS: BP 143/88
--- NOTE | 2023-08-28 23:00 | PTCARENOTE ---
Pt's prelim gram stain came back positive for Viridans Streptococcus Group from her abdominal wound culture. The charge nurse Crista and I did some research to see if the Pt's precaution status needed to be updated. We could not find anything specific
to this result from the abdominal wound site. Crista called our Nurse Machine Set [employer], Sruthi to inquire about the Pt's precaution status with Viridans Streptococcus Group in her wound. The Nursing Machine [employer] stated we could maintain Standard precautions on
this Pt.
[2023-08-29] MEDS: FLAGYL 500 MG 100 IV (03:02)
[2023-08-29] MEDS: SYNTHROID 50 MCG PO (06:37)
[2023-08-29 07:00] VITALS: BP 156/109
[2023-08-29 07:54] LABS: % Basophils 0.3 % (0-2); % Eosinophils 1.1 % (0-6); % Immature Granulocytes 1.4 % (0-0.5); % Lymphocytes 18.5 % (20.5-51.1); % Monocytes 6.2 % (1.7-9.3); % Neutrophils 72.5 % (42.2-75.2); Absolute Eosinophils 0.1 10^3/uL (0-0.7); Absolute Immature Granulocytes 0.1 10^3/uL (0-0.05); Absolute Lymphocytes 1.2 10^3/uL (1.2-3.4); Absolute Monocytes 0.4 10^3/uL (0.1-0.6); Absolute Neutrophils 4.5 10^3/uL (1.4-6.5); Hematocrit 33.7 % (37.0-47.0); Hemoglobin 11.5 g/dL (12.0-16.0); Mean Corp Hgb Conc. 34.1 g/dL (33.0-37.0); Mean Corpuscular Hgb 29.8 pg (27.0-31.0); Mean Corpuscular Volume 87.3 fL (81.0-99.0); Mean Platelet Volume 9.3 fL (7.4-10.4); Nucleated Red Blood Cells % 0 %; Platelet Count 256 10^3/uL (130-400); Red Blood Cell Count 3.86 10^6/uL (4.20-5.40); Red Cell Dist. Width 12.7 % (11.5-14.5); White Blood Cell Count 6.3 10^3/uL (4.8-10.8)
[2023-08-29 08:19] LABS: Blood Urea Nitrogen 9 mg/dl (7-17); Calcium 8.6 mg/dl (8.4-10.2); Carbon Dioxide 22 mmol/L (22-30); Chloride 105 mmol/L (98-107); Estimated Creatinine Clearance 102 ml/min; Glucose 115 mg/dl (70-99); Potassium 3.5 mmol/L (3.5-5.1); Sodium 138 mmol/L (135-145); eGFR > 60.00
--- NOTE | 2023-08-29 09:29 | W.PN.HOSP.TC ---
Today's Communication/Plan
-
OK for DC today
Assessment / Plan
Assessment / Plan
Ms. Marilyn Hughes is a 63 year old woman with history of hypothyroidism and GERD with outpatient work-up of one month abdominal pain showing large multiloculated periappendiceal abscess - sent to the ER.
CT urography abdomen pelvis pre and post IV contrast:
1. Large multiloculated periappendiceal abscess 9.1 x 7.4 x 8.1 cm
2. Gallstone
3. Hepatic cyst
4. Too small to characterize hypodense right renal lesions likely benign cyst
5. Simple right renal cyst
6. Coarse pancreatic calcifications suggesting chronic pancreatitis
#Large periappendiceal abscess
-appreciate surgery consult
-s/p IR-guided drainage
-cultures from drainage with viridans strep
--> will DC on Cefdinir/Flagyl (patient tolerated Ceftriaxone in-house)
-change abx to ceftriaxone/flagyl. Patient reports penicillin allergy at 8 months old, hives, did not need hospitalization. she was on cipro as outpatient given concern for pyelo
-pain control
-diet advanced
#Allergic reaction IV iodine contrast eyelid swelling
-s/p Benadryl
-*resolved AM 08/26
#Hypokalemia
-repleted
#Mild transaminitis likely reactive
Follow CMP
#GERD
-Continue Protonix 40 mg every afternoon
#Hypothyroidism
-Continue levothyroxine 50 mcg p.o. daily
DVT prophylaxis
SCDs
Full code
Anticipated Discharge: Today
Subjective/Interval History
-
Date of Service: August 29, 2023
feeling well
wants to go home
Objective Data
-
Labs:
Laboratory Results
08/29/23
07:27
WBC 6.3
Hgb 11.5 L
Hct 33.7 L
Plt Count 256
Sodium 138
Potassium 3.5
Chloride 105
Carbon Dioxide 22
BUN 9
Creatinine 0.5 L
Glucose 115 H
Calcium 8.6
Vital Signs:
Vital Signs
Temp Pulse Resp BP Pulse Ox
97.5 F 76 17 156/109 98
08/29/23 07:00 08/29/23 07:00 08/29/23 07:00 08/29/23 07:00 08/29/23 07:00
I&O
08/28/23 08/29/23 08/30/23
06:59 06:59 06:59
Intake Total 2705 / 2705 1305 / 1305 5 / 5
Output Total 135 / 135 38 / 38
Balance 2570 / 2570 1267 / 1267 5 / 5
Review of Systems
-
History Source: Patient
All other systems: Reviewed and negative
Physical Exam
-
General: No Apparent Distress
HEENT: PERRLA
Respiratory: Clear to Auscultation; Negative Wheezes
Cardiac: Regular Rhythm and S1/S2
GI: Other (ULYSSES drain in place)
Musculoskeletal: No Edema
Skin: Warm and Dry; Negative Rash
Neuro: AO x 3
Psych: Calm
Data Reviewed
-
Diagnostic Radiology: Report Reviewed by me
Labs: Labs Reviewed by me
--- NOTE | 2023-08-29 09:35 | W.DS.TRANS ---
DC Summary - Immigration Investigator
-
Discharge Instructions:
Discharge Diagnosis/Procedures Periappendiceal abscess status post drain
placement with culture growing Streptococcus
Viridans
Diet Regular
Activity As tolerated
Driving Restrictions As prior to admission
Other Services VN
Wound Care Forward flush (towards your body) your drain
every day with sterile saline. Keep track of the
drainage and call your surgeon if it drops
below 30ml in 24 hours
Instructions: How to Keep Track of Your Drainage
Stand-Alone Forms:
Changes to Home Medications: Yes
Discharge Medications:
DC Medications w/original date entered in [facility]
ibuprofen 200 mg tablet 400 mg PO TIDPRN PRN mild pain 08/26/23
levothyroxine 50 mcg tablet (Synthroid) 50 mcg PO DAILY Thyroid 08/26/23
pantoprazole 40 mg tablet,delayed release 40 mg PO QPM Gastrointestinal Issue 08/26/23
tamsulosin 0.4 mg capsule 0.4 mg PO NOON Urinary Issue 08/26/23
cefdinir 300 mg capsule 300 mg PO Q12H #20 caps 08/29/23
metronidazole 500 mg tablet 500 mg PO Q8H #30 tabs 08/29/23
sodium chlor 0.9% bacteriostat 0.9 %, bacteriostatic injection solution 5 ml .Route DAILY #150 mL 08/29/23
Home Medication Changes
addition of 10 days cefdinir/flagyl
Pending Results: Yes
Additional Pending Results:
final wound culture
[2023-08-29] MEDS: STERILE WATER FOR INJECTION 10 ML IV (10:07)
[2023-08-29] MEDS: ROCEPHIN 1000 MG IV (10:08)
--- NOTE | 2023-08-29 10:59 | W.PN.GS2 ---
Today's Communication / Plan
-
Dispo planning after drain teaching.
Assessment / Plan
-
This is a 63-year-old female with a history of an open partial hysterectomy, no prior colonoscopy but routinely does Cologuard screening who presents with a 4 to 6-week history of persistent right lower quadrant pain found to have a large abscess
likely perforated appendicitis now PPD #1 from a IR drain. Clinically much improved, passing flatus. Leukocytosis resolved.
Okay to DC home today with drain teaching. Home nursing order placed.
Continue drain to a bulb suction, flush with 10 cc sterile saline daily to maintain patency.
Continue antibiotics, will plan for a 10-day course of Cipro/Flagyl.
She will need an outpatient colonoscopy, and likely drain injection study/repeat CT scan prior to interval appendectomy.
She will follow-up with Dr. Huddleston as an outpatient.
Time Spent
Total Time Spent with Patient (in minutes): 20
Subjective Data
-
Date of Service: August 29, 2023
Interval Events:
No acute events overnight. Slept well. Pain Controlled. Denies Nausea/Vomiting, +bowel function. Tolerating diet.
Objective Data
-
Intake and Output
08/28/23 08/29/23 08/30/23
06:59 06:59 06:59
Intake Total 2705 / 2705 1305 / 1305
Output Total 135 / 135 38 / 38
Balance 2570 / 2570 1267 / 1267
Intake:
Oral fluids 1200 / 1200 1200 / 1200
IV fluids (Total) 1200 / 1200
IV piggybacks 300 / 300 100 / 100
Amount instilled into Drain (
Total)
Right Lower Abdomen Placed in
IR
Output:
Drain Output (Total) 135 / 135 38 / 38
Isaac-Willis 135 135
Other:
Number of approximated SMALL 2
amounts of urine
Number of approximated MODERATE 2 5
amounts of urine
Vital Signs
Temp Pulse Resp BP Pulse Ox
97.5 F 76 17 156/109 98
08/29/23 07:00 08/29/23 07:00 08/29/23 07:00 08/29/23 07:00 08/29/23 07:00
Lab Results
08/29/23 07:27
08/29/23 07:27
Calcium 8.6 mg/dl (8.4-10.2) 08/29/23 07:27
Total Bilirubin 0.9 mg/dl (0.2-1.3) 08/28/23 07:19
AST 34 U/L (14-36) 08/28/23 07:19
ALT 34 U/L (0-35) 08/28/23 07:19
Alkaline Phosphatase 82 U/L (38-126) 08/28/23 07:19
Total Protein 5.4 g/dl (6.3-8.2) L 08/28/23 07:19
Albumin 2.5 g/dl (3.5-5.0) L 08/28/23 07:19
Physical Exam
-
GENERAL/NEURO: Awake, Alert, no distress
CHEST: Unlabored breathing on RA
ABDOMEN: Soft, Non-Tender, Non-Distended, ULYSSES with serosanguineous output
--- NOTE | 2023-08-29 11:23 | CM ---
CM reviewed chart and noted dc order
VN order placed for drain care and daily flushes
Bedside update to pt- she requested referral to [facility]
Referral placed via [facility] and discussion with [facility]
Insurance review to be done tomorrow and SOC not until 1-2 days out
Referral to [facility] and they can start care tomorrow
Pt declined [facility] as concerned [facility] is a higher tier provider with larger copays
Notes [facility] network with her insurance-she would like to proceed with [facility]
Notes she is comfortable with her drain care and flushes tomorrow independently
Discussion with nursing- they will reinforce bedside teaching
Pt in agreement with plan
Update to [facility] via [facility]
Discharge Disposition- home with [facility], family transport
[2023-08-29 11:45] VITALS: BP 138/90
[2023-08-29] MEDS: FLOMAX PO (11:54)
--- NOTE | 2023-08-29 13:01 | W.DCSUMMARY ---
Discharge Summary
Discharge Data
Date of Admission: 08/26/23
Date of Discharge: 08/29/23
-
Pending Results: No
Hospital Course
Discharging Physician : Dr. Chantal Cartwright
Disposition : Home with Home Health
Primary care physician : Dr. Guillermo Henderson
Principal Discharge diagnosis : Periappendiceal abscess status post drain placement with culture growing Streptococcus Viridans
Hospital Course :
Ms. Marilyn Hughes is a 63 year old woman with history of hypothyroidism and GERD with outpatient work-up of one month abdominal pain showing large multiloculated periappendiceal abscess; and patient was sent to the ER. Triage vitals stable. Labs
with WBC 12.7, Na 132, K+ 3.3, Cr 0.5. She was admitted to medicine with general surgery and IR consulting.
She is s/p IR-guided drainage with placement of a ULYSSES drain on 08/26. Cultures grew Strep Viridans. She was trialed on IV Ceftriaxone in-house and tolerated well. She is discharged on 10 more days of Cefdinir/Flagyl. Patient is given instructions
on drain management at home and will follow up closely with PCP and GS. She will need an outpatient colonoscopy, and likely drain injection study/repeat CT scan prior to interval appendectomy. Patient is told to follow up with her GI doctor, .
Kayla.
Time spent on discharge was 35 minutes.
Important imaging findings :
CT urography abdomen pelvis pre and post IV contrast 08/26/23:
1. Large multiloculated periappendiceal abscess 9.1 x 7.4 x 8.1 cm
2. Gallstone
3. Hepatic cyst
4. Too small to characterize hypodense right renal lesions likely benign cyst
5. Simple right renal cyst
6. Coarse pancreatic calcifications suggesting chronic pancreatitis
Procedure findings :
Discharge Plan
-
Patient Disposition: Home with Home Care
Discharge Diagnosis/Procedures: Periappendiceal abscess status post drain placement with culture growing Streptococcus Viridans
Condition: Good
Diet: Regular
Activity: As tolerated
Driving Restrictions: As prior to admission
Other Services: VN
Wound Care: Forward flush (towards your body) your drain every day with sterile saline. Keep track of the drainage and call your surgeon if it drops below 30ml in 24 hours
Instructions: How to Keep Track of Your Drainage
Referrals:
Guillermo Henderson MD [Family Provider] - in less than 1 week
Dario Huddleston MD [Active] - in two weeks
Additional Discharge Medication Instructions: Take Cefdinir 300 twice a day + Flagyl 500mg 3x/day x 10 more days
Follow up closely with Dr. Henderson and Dr. Huddleston
No alcohol with Flagyl
I recommend buying probiotics (over the counter) and taking one daily while on antibiotics and for one week following.
Prescriptions:
New
sodium chlor 0.9% bacteriostat 0.9 % solution
5 ml .Route DAILY Qty: 150 0RF
Rx Instructions:
Forward flush drain with 5ml of sterile saline daily
cefdinir 300 mg capsule
300 mg PO Q12H Qty: 20 0RF
Rx Instructions:
first dose morning of 08/29
metronidazole 500 mg tablet
500 mg PO Q8H Qty: 30 0RF
Continued
tamsulosin 0.4 mg Capsule
0.4 mg PO NOON
levothyroxine [Synthroid] 50 mcg Tablet
50 mcg PO DAILY
pantoprazole 40 mg Tablet,Delayed Release (Dr/Ec)
40 mg PO QPM
ibuprofen 200 mg Tablet
400 mg PO TIDPRN PRN (Reason: mild pain)
Patient Comments:
08/26/2023, tries to take 6 hours apart.
Discharge Orders:
Discharge Patient (As Directed); Ordered 08/29/23
Ordered By: Chantal Cartwright
Discharge Date and Time
Discharge Date/Time: 08/29/23 12:30
Print Language: GUYANESE
[2023-08-29 22:43] LABS: CA 19-9 23 U/mL (<=35)
== END 2023-08-29 12:30 | disposition home health service (06) | DRG 372 ==
LOC: 2 SOUTH 21:54
PROVIDERS: Clinical Nurse Specialist Family Health; Emergency Medicine; Physician Assistant; Radiology Vascular & Interventional Radiology; Registered Nurse; Surgery; ADMITTING PHYSICIAN Hospitalist; ATTENDING PHYSICIAN Student in an Organized Health Care Education/Training Program; EMERGENCY PHYSICIAN Emergency Medicine; FAMILY PHYSICIAN Family Medicine; OTHER PHYSICIAN Surgery
PROC: 0W9G30Z Drainage of Peritoneal Cavity with Drainage Device, Percutaneous Approach (ICD-10-PCS; 2023-08-27)
DX: K35.33 Acute appendicitis with perforation, localized peritonitis, and gangrene, with abscess (principal); K86.1 Other chronic pancreatitis; K76.89 Other specified diseases of liver; E03.9 Hypothyroidism, unspecified; B95.4 Other streptococcus as the cause of diseases classified elsewhere; K21.9 Gastro-esophageal reflux disease without esophagitis; K80.20 Calculus of gallbladder without cholecystitis without obstruction; N28.1 Cyst of kidney, acquired; M54.50 Low back pain, unspecified; R31.9 Hematuria, unspecified; Z79.890 Hormone replacement therapy; Z80.51 Family history of malignant neoplasm of kidney; Z87.891 Personal history of nicotine dependence; Z88.0 Allergy status to penicillin; Z88.1 Allergy status to other antibiotic agents; Z90.711 Acquired absence of uterus with remaining cervical stump; Z91.041 Radiographic dye allergy status
CPT/HCPCS: 88305; 49406; 80048; 80053; 82378; 83605; 83690; 85025; 85610; 86301; 87040; 87070; 87205; 88112; 96365; 96375; 97116; 97162; 97165; 99152; 99284

== ENCOUNTER → 2023-09-04 10:01 | Outpatient (REF) | payer OTHER, SELFPAY | LOC: RAD 10:01 | PROVIDERS: ATTENDING PHYSICIAN Surgery; FAMILY PHYSICIAN Family Medicine | DX: K35.33 Acute appendicitis with perforation, localized peritonitis, and gangrene, with abscess (principal) | CPT/HCPCS: 74176 ==

== ENCOUNTER → 2023-09-08 10:44 | Outpatient (REF) | payer OTHER, SELFPAY ==
[2023-09-08 11:05] VITALS: BP 146/107; BP_SYST 76
[2023-09-08 11:30] VITALS: BP 149/99; BP_SYST 72
[2023-09-08 11:35] VITALS: BP 149/99
== END ==
LOC: RADI 10:44
PROVIDERS: ATTENDING PHYSICIAN Surgery; FAMILY PHYSICIAN Family Medicine
DX: Z46.82 Encounter for fitting and adjustment of non-vascular catheter (principal); K65.1 Peritoneal abscess
CPT/HCPCS: 49424; 76080

== ENCOUNTER 2023-10-20 10:51 | Inpatient (IN) | payer OTHER, SELFPAY ==
[2023-10-08 08:52] LABS: Hematocrit 42.6 % (37.0-47.0); Hemoglobin 14.7 g/dL (12.0-16.0); Mean Corp Hgb Conc. 34.5 g/dL (33.0-37.0); Mean Corpuscular Volume 89.9 fL (81.0-99.0); Mean Platelet Volume 10.2 fL (7.4-10.4); Platelet Count 141 10^3/uL (130-400); Red Blood Cell Count 4.74 10^6/uL (4.20-5.40); Red Cell Dist. Width 15.7 % (11.5-14.5); White Blood Cell Count 6.7 10^3/uL (4.8-10.8)
[2023-10-08 09:22] LABS: Blood Urea Nitrogen 11 mg/dl (7-17); Calcium 9.7 mg/dl (8.4-10.2); Carbon Dioxide 23 mmol/L (22-30); Chloride 108 mmol/L (98-107); Glucose 97 mg/dl (70-99); Potassium 4.2 mmol/L (3.5-5.1); Sodium 141 mmol/L (135-145); eGFR > 60.00
[2023-10-20] VITALS (12 sets, daily range): BP systolic 125–166; BP diastolic 79–125
[2023-10-20] MEDS: NORMOSOL-R 1000 IV (11:27)
[2023-10-20] MEDS: TYLENOL 1000 MG PO (11:27)
[2023-10-20] MEDS: MOTRIN 600 MG PO (16:17)
== END 2023-10-20 16:14 | disposition home or self-care (01) | DRG 399 ==
LOC: AMOS 10:51
PROVIDERS: ADMITTING PHYSICIAN Surgery; FAMILY PHYSICIAN Physician Assistant
PROC: 0DTJ4ZZ Resection of Appendix, Percutaneous Endoscopic Approach (ICD-10-PCS; 2023-10-20)
DX: K35.32 Acute appendicitis with perforation, localized peritonitis, and gangrene, without abscess (principal); K74.60 Unspecified cirrhosis of liver; E66.9 Obesity, unspecified; Z68.30 Body mass index [BMI] 30.0-30.9, adult; E03.9 Hypothyroidism, unspecified; E78.5 Hyperlipidemia, unspecified; Z79.890 Hormone replacement therapy; Z79.899 Other long term (current) drug therapy; Z87.19 Personal history of other diseases of the digestive system; Z90.711 Acquired absence of uterus with remaining cervical stump; Z87.42 Personal history of other diseases of the female genital tract; Z87.891 Personal history of nicotine dependence; Z88.0 Allergy status to penicillin; Z88.1 Allergy status to other antibiotic agents
CPT/HCPCS: 88304; 36415; 80048; 85027; 93005; C1776

== ENCOUNTER → 2024-02-18 11:06 | Outpatient (REF) | payer OTHER, SELFPAY | LOC: WDC 11:06 | PROVIDERS: ATTENDING PHYSICIAN Physician Assistant | DX: Z12.31 Encounter for screening mammogram for malignant neoplasm of breast (principal) | CPT/HCPCS: 77063; 77067 ==